=== PATIENT | female | born 1985 ===

== ENCOUNTER 2017-04-19 20:22 | Emergency (ER) | payer BC, MEDICAID ==
[2017-04-19 20:40] VITALS: BP 122/78
[2017-04-19] MEDS ORDERED: Sodium Chloride 0.9% 10 ML Syringe FLUSH PRN (21:32)
[2017-04-19] MEDS ORDERED: Sodium Chloride 0.9% 1,000 ML IV ONE (21:32)
[2017-04-19] MEDS ORDERED: Ketorolac 30 MG/ML SDV IVPUSH ONE (21:32)
[2017-04-19] MEDS ORDERED: Ondansetron 4 MG/2 ML SDV IVPUSH ONE (21:32)
[2017-04-20] MEDS ORDERED: Levofloxacin/Dextrose 5%-Water 750 MG in Premix Bag 1 BAG IV ONE (00:02)
[2017-04-20] MEDS ORDERED: Levofloxacin 250 MG Tab PO ONE (00:03)
--- NOTE | 2017-04-20 00:14 | EDM.PDOC ---
ED HPI GENERAL MEDICAL PROBLEM - General Chief Complaint: Abdominal Pain Stated Complaint: ABDOMINAL AND BACK PAIN Time Seen by Provider: 04/19/17 21:20 Source of Information: Reports: Patient History Limitations: Reports: No Limitations - History of Present Illness INITIAL COMMENTS - FREE TEXT/NARRATIVE: 32-year-old female presents for evaluation and treatment of bilateral flank and back pain. Reports that the symptoms started at least 2 weeks ago. States that she was seen by her primary care provider. She had labs and an abdominal done. She was treated for constipation. She states she's been using enemas and mag citrate but her symptoms have persisted. She reports she's had some fevers, nausea and a decreased appetite. Reports that the pain is located in the suprapubic area and radiates into the bilateral flanks and bilateral mid back. No vomiting. No dysuria but states she does feel increased pain at the end of her urinary stream. Also reports follow urine odor and increased urination. Reports her fevers have been 100 to 101 at home. Patient is currently on pain medications and incident pain contract for chronic pelvic and spine pain. She does see a provider at [facility] and is supposed to have surgery for her ongoing chronic pelvic and spinal pain. Abdominal Pain Score (Numeric/FACES): 6 - Related Data Allergies Allergy/AdvReac Type Severity Reaction Status Date / Time Penicillins Allergy Cannot Verified 04/19/17 20:40 Remember aspirin AdvReac Stomach Verified 04/19/17 20:40 Upset azithromycin [From Zithromax] AdvReac Hallucinati Verified 04/19/17 20:40 ons nerve medication Allergy Other Uncoded 04/19/17 20:40 steroids Allergy Other Uncoded 04/19/17 20:40 Home Meds: Home Meds Diazepam [Valium] 5 mg PO TID PRN #10 tablet 12/26/15 [Rx] Omeprazole 40 mg PO DAILY 12/26/15 [History] Nortriptyline 50 mg PO PCDINNER 05/16/16 [History] acetaZOLAMIDE [Diamox] 500 mg PO BID 05/16/16 [History] Morphine Sulfate/Naltrexone [Embeda ER 30-1.2 mg Capsule] 1 cap PO BID 04/19/17 [History] Nabumetone 500 mg PO BID 04/19/17 [History] oxyCODONE HCl [Oxycodone HCl] 20 mg PO BID 04/19/17 [History] Levofloxacin [Levaquin] 750 mg PO DAILY #6 tablet 04/20/17 [Rx] Past Medical History HEENT History: Reports: Impaired Vision Gastrointestinal History: Reports: Chronic Constipation Genitourinary History: Reports: None 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: Musculoskeletal History: Reports: Arthritis Other Musculoskeletal History: Bursitis to left shoulder Neurological History: Reports: Other (See Below) Other Neuro History: Psuedo tumors - cerebral Endocrine/Metabolic History: Reports: Other (See Below) Other Endocrine/Metabolic History: Thyroid nodules - Past Surgical History Female Surgical History: Reports: D&C, Tubal Ligation Neurological Surgical History: Reports: None Musculoskeletal Surgical History: Reports: Shoulder Surgery Social & Family History - Family History Family Medical History: Noncontributory - Tobacco Use Smoking Status *Q: Current Every Day Smoker Years of Tobacco use: 10 Packs/Tins Daily: 0.3 Used Tobacco, but Quit: No - Alcohol Use Days Per Week of Alcohol Use: 0 - Recreational Drug Use Recreational Drug Use: No ED ROS GENERAL - Review of Systems Review Of Systems: See Below Constitutional: Reports: Fever, Decreased Appetite Respiratory: Denies: Cough GI/Abdominal: Reports: Abdominal Pain (suprapubic ), Nausea. Denies: Diarrhea, Vomiting : Reports: Flank Pain (bilateral). Denies: Dysuria Musculoskeletal: Reports: Back Pain (bilateral mid to lower back) ED EXAM, RENAL/ - Physical Exam Exam: See Below Exam Limited By: No Limitations General Appearance: Alert, WD/WN, No Apparent Distress Eye Exam: Bilateral Eye: Normal Inspection Ears: Normal External Exam Nose: Normal Inspection Throat/Mouth: Normal Inspection, Normal Lips, Normal Voice, No Airway Compromise Neck: Normal Inspection Respiratory/Chest: No Respiratory Distress, Lungs Clear, Normal Breath Sounds Cardiovascular: Normal Peripheral Pulses, Regular Rate, Rhythm, No Murmur GI/Abdominal: Normal Bowel Sounds, Soft, Tender (reports suprapubic tenderness) Back Exam: Normal Inspection, CVA Tenderness (L), Paraspinal Tenderness Neurological: Alert, Oriented, Normal Cognition Psychiatric: Normal Affect, Normal Mood Skin Exam: Warm, Dry, Normal Color Course - Vital Signs Last Recorded V/S: Last Vital Signs Temp 37.2 C 04/19/17 20:34 Pulse 131 H 04/19/17 20:34 Resp 16 04/19/17 20:34 BP 122/78 04/19/17 20:34 Pulse Ox 100 04/19/17 20:34 - Orders/Labs/Meds Orders: Active Orders 24 hr Category Date Time Status Peripheral IV Care [RC] . DIRECTED Care 04/19/17 21:32 Active Abdomen Pelvis wo Cont [CT] Stat Exams 04/19/17 23:23 Taken Peripheral IV Insertion Adult [OM.PC] Routine Oth 04/19/17 21:32 Ordered Labs: Laboratory Tests 04/19/17 04/19/17 04/19/17 Range/Units 21:05 21:40 21:40 WBC 7.83 (3.98-10.04) K/mm3 RBC 4.04 (3.98-5.22) M/mm3 Hgb 11.9 (11.2-15.7) gm/L Hct 35.1 (34.1-44.9) % MCV 86.9 (79.4-94.8) fl MCH 29.5 (25.6-32.2) pg MCHC 33.9 (32.2-35.5) g/dl RDW Std Deviation 41.2 (36.4-46.3) fL Plt Count 187 (182-369) K/mm3 MPV 11.2 (9.4-12.3) fl Neutrophils % (Manual) 69 H (40-60) % Band Neutrophils % 0 (0-10) % Lymphocytes % (Manual) 19 L (20-40) % Atypical Lymphs % 1 % Monocytes % (Manual) 9 (2-10) % Eosinophils % (Manual) 1 (0.7-5.8) % Basophils % (Manual) 1 (0.1-1.2) Platelet Estimate Adequate Plt Morphology Comment Normal Poikilocytosis 1+ slight Anisocytosis 1+ slight Microcytosis 1+ slight Macrocytosis 1+ slight Ovalocytes 1+ slight RBC Morph Comment Abnormal Sodium 137 (136-145) mEq/L Potassium 3.3 L (3.5-5.1) mEq/L Chloride 104 (98-107) mEq/L Carbon Dioxide 18 L (21-32) mEq/L Anion Gap 18.3 H (5-15) BUN 9 (7-18) mg/dL Creatinine 1.0 (0.55-1.02) mg/dL Est Cr Clr Drug Dosing 78.54 mL/min Estimated GFR (MDRD) > 60 (>60) mL/min BUN/Creatinine Ratio 9.0 L (14-18) Glucose 112 H (74-106) mg/dL Calcium 8.2 L (8.5-10.1) mg/dL Total Bilirubin 0.3 (0.2-1.0) mg/dL AST 12 L (15-37) U/L ALT 16 (14-59) U/L Alkaline Phosphatase 114 (46-116) U/L C-Reactive Protein 10.2 H* (<1.0) mg/dL Total Protein 7.6 (6.4-8.2) g/dl Albumin 3.3 L (3.4-5.0) g/dl Globulin 4.3 gm/dL Albumin/Globulin Ratio 0.8 L (1-2) Urine Color Yellow (Yellow) Urine Appearance Slt cloudy H (Clear) Urine pH 7.5 (5.0-8.0) Ur Specific [place] 1.020 (1.005-1.030) Urine Protein 1+ H (Negative) Urine Glucose (UA) Negative (Negative) Urine Ketones Negative (Negative) Urine Occult Blood Negative (Negative) Urine Nitrite Negative (Negative) Urine Bilirubin Negative (Negative) Urine Urobilinogen 2.0 H (0.2-1.0) Ur Leukocyte Esterase 2+ H (Negative) Urine RBC 0-5 (0-5) /hpf Urine WBC 50-75 H (0-5) /hpf Ur Epithelial Cells 0-5 (0-5) /hpf Urine Bacteria Occasional (FEW) /hpf Urine Mucus Not seen (FEW) /hpf Meds: Medications Discontinued Medications Generic Name Dose Route Start Last Admin Trade Name Freq PRN Reason Stop Dose Admin Sodium Chloride 1,000 mls @ 999 mls/hr 04/19/17 21:32 04/19/17 21:46 Normal Saline IV 04/19/17 22:32 999 mls/hr ONETIME ONE Administration Levofloxacin/Dextrose 750 mg/ 150 mls @ 100 mls/hr 04/20/17 00:02 Premix IV 04/20/17 01:31 ONETIME ONE Ketorolac Tromethamine 30 mg 04/19/17 21:32 04/19/17 21:44 Toradol IVPUSH 04/19/17 21:33 30 mg ONETIME ONE Administration Levofloxacin 750 mg 04/20/17 00:03 04/20/17 00:07 Levaquin PO 04/20/17 00:04 750 mg ONETIME ONE Administration Ondansetron HCl 4 mg 04/19/17 21:32 04/19/17 21:44 Zofran IVPUSH 04/19/17 21:33 4 mg ONETIME ONE Administration Sodium Chloride 10 ml 04/19/17 21:32 04/19/17 21:44 Saline Flush FLUSH 10 ml ASDIRECTED PRN Administration Keep Vein Open - Radiology Interpretation Free Text/Narrative:: CT of the abdomen and pelvis without contrast impression per vrad: mild splenomegaly. Left sided perinephric inflammation notes without evidence for stones or hydronephrosis. These findings may represent pyelonephritis. Please correlate with urinalysis. Nonspecific retroperitoneal lymphadenopathy. - Re-Assessments/Exams Free Text/Narrative Re-Assessment/Exam: 04/19/17 23:13 I reviewed the labs with the patient. Given her positive urinalysis and positive UA on the along with her current symptoms; she clinically has a pyelonephritis. I informed her that she needs antibiotics. Her urine has been sent for culture. Patient is adamant that she has kidney stones. She would like us to obtain a CT to evaluate this. Will obtain CT of the abdomen and pelvis. 04/20/17 00:[address] results with the patient. No stones. Stranding on the left kidney consistent with pyelonephritis. She does have mild splenomegaly and nonspecific retroperitoneal lymphadenopathy. This is likely from infection. I will have a follow-up with her primary care provider for recheck of her symptoms next week. Discharge instructions as documented. Departure - Departure Time of Disposition: 00:11 Disposition: Home, Self-Care 01 Condition: Fair Clinical Impression: Pyelonephritis - Discharge Information Prescriptions: Levofloxacin [Levaquin] 750 mg PO DAILY #6 tablet Instructions: Pyelonephritis, Adult Referrals: Marge Penn DENTAL HYGIENIST MOBILE COORDINATOR [Primary Care Provider] - Forms: ED Department Discharge Additional Instructions: Continue with your current pain medications. He may take [id number] Tylenol as needed for fever and additional pain relief. Follow up with Libby carolina next week for recheck of your symptoms. Major drinking plenty of fluids. Levaquin 1 tab daily for the next 6 days. First dose given in the ED. Stereo prescription on [id number] of the abdomen and pelvis impression per radiology: mild spenlomegaly. Left sided perinephric inflammation without evidence of stones or hydronephrosis. These findings may represent pyelonephritis. Nonspecific retroperitoneal lyphadenopathy. Please return to the ER if her symptoms change or worsen. - My Orders Last 24 Hours: My Active Orders 04/19/17 21:32 Peripheral IV Care [RC] . DIRECTED Peripheral IV Insertion Adult [OM.PC] Routine 04/19/17 23:23 Abdomen Pelvis wo Cont [CT] Stat - Assessment/Plan Last 24 Hours: My Active Orders 04/19/17 21:32 Peripheral IV Care [RC] . DIRECTED Peripheral IV Insertion Adult [OM.PC] Routine 04/19/17 23:23 Abdomen Pelvis wo Cont [CT] Stat
--- NOTE | 2017-04-20 12:55 | CT ---
CT abdomen and pelvis Technique: Multiple axial sections were obtained from above the dome of the diaphragm inferiorly through the pubic symphysis. Intravenous and oral contrast not utilized. Study has been performed as a ureteral stone protocol. Findings: Kidneys show no abnormal calcifications. No ureteral dilatation or ureteral stone is seen. No bladder calculi are identified. There is inflammatory change seen around the left kidney. Visualized lung bases are clear. Noncontrast appearance of the liver appears within normal limits. Spleen is slightly prominent in size at 13 cm. Adrenal glands show no nodule. Pancreas shows no discrete abnormality. Gallbladder contains no calcified gallstones. Aorta shows no aneurysmal dilatation. No mesenteric abnormalities are seen. No pelvic mass or adenopathy is seen. Minimally prominent lymph nodes are seen within the retroperitoneum. No free fluid is seen. Bone window settings appear within normal limits for the patient's age. Impression: 1. Inflammatory change around the left kidney. No ureteral calculi are seen. Inflammatory change could represent change from recent passage of a ureteral stone as well as pyelonephritis. 2. Spleen is mildly enlarged. Minimally prominent retroperitoneal lymph nodes are seen. Both these findings are nonspecific. 3. No additional abnormality identified on noncontrast CT study of the abdomen and pelvis. Diagnostic code #3 Agree with preliminary report issued by [employer] ([employer] preliminary report dictated on 04/20/17, 12:52 AM Central Time) [facility]
== END 2017-04-20 00:23 | disposition home or self-care (01) ==
LOC: JD.ED 20:22
DX: N12 Tubulo-interstitial nephritis, not specified as acute or chronic (principal); F17.210 Nicotine dependence, cigarettes, uncomplicated; Z79.2 Long term (current) use of antibiotics; Z79.899 Other long term (current) drug therapy; Z88.0 Allergy status to penicillin; Z88.1 Allergy status to other antibiotic agents; Z88.6 Allergy status to analgesic agent; Z88.8 Allergy status to other drugs, medicaments and biological substances
CPT/HCPCS: 36415; 74176; 80053; 81001; 85025; 86140; 96361; 96374; 96375; 99284; A9270; J1885; J2405; J7040; J7050

== ENCOUNTER 2017-11-15 22:16 | Emergency (ER) | payer MEDICAID ==
[2017-11-15 22:36] VITALS: BP 118/80
[2017-11-15] MEDS ORDERED: Sodium Chloride 0.9% 10 ML Syringe FLUSH PRN (23:01)
[2017-11-16] MEDS ORDERED: Metoclopramide 10 MG/2 ML SDV IVPUSH ONE (00:26)
[2017-11-16] MEDS ORDERED: Morphine 10 MG/ML Syringe IVPUSH ONE (00:27)
[2017-11-16] MEDS ORDERED: Morphine 4 MG/ML Syringe IVPUSH ONE (00:45)
[2017-11-16] MEDS ORDERED: Sodium Chloride 0.9% 1,000 ML IV ONE (01:47)
[2017-11-16] MEDS ORDERED: Potassium Chloride 20 MEQ Tab.ER PO ONE (01:48)
[2017-11-16] MEDS ORDERED: Acetaminophen 325 MG Tab PO ONE (03:21)
--- NOTE | 2017-11-16 03:51 | EDM.PDOC ---
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, NSAIDS Bilateral Incisional Pain Score (Numeric/FACES): 9 - Related Data Allergies Allergy/AdvReac Type Severity Reaction Status Date / Time aspirin AdvReac Stomach Verified 11/15/17 22:37 Upset azithromycin [From Zithromax] AdvReac Hallucinati Verified 11/15/17 22:37 ons Home Meds: Home Meds Omeprazole 40 mg PO ACBREAKFAST 12/26/15 [History] Nortriptyline 50 mg PO PCDINNER 05/16/16 [History] acetaZOLAMIDE [Diamox] 500 mg PO BID 05/16/16 [History] Morphine Sulfate/Naltrexone [Embeda ER 30-1.2 mg Capsule] 1 cap PO BID 04/19/17 [History] oxyCODONE HCl [Oxycodone HCl] 20 mg PO Q3HR 04/19/17 [History] Celecoxib [CeleBREX] 200 mg PO BID 11/16/17 [History] Diazepam [Valium] 2 mg PO BID PRN 11/16/17 [History] Polyethylene Glycol 3350 [MiraLAX] 1 packet PO DAILY 11/16/17 [History] Sennosides/Docusate Sodium [Senna-Docusate Sodium Tablet] 1 each PO BID [History] Past Medical History HEENT History: Reports: Impaired Vision Gastrointestinal History: Reports: Chronic Constipation Genitourinary History: Reports: 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: Musculoskeletal History: Reports: Arthritis Other Musculoskeletal History: Bursitis to left shoulder Neurological History: Reports: Other (See Below) Other Neuro History: Psuedo tumors - cerebral Endocrine/Metabolic History: Reports: Other (See Below) Other Endocrine/Metabolic History: Thyroid nodules - Infectious Disease History Infectious Disease History: Reports: Chicken Pox - Past Surgical History HEENT Surgical History: Reports: Oral Surgery Female Surgical History: Reports: D&C, Tubal Ligation Neurological Surgical History: Reports: None Musculoskeletal Surgical History: Reports: Shoulder Surgery, Other (See Below) Other Musculoskeletal Surgeries/Procedures:: SI fusion/pelvic Social & Family History - Family History Family Medical History: Noncontributory - Tobacco Use Smoking Status *Q: Former Smoker Used Tobacco, but Quit: Yes Month/Year Tobacco Last Used: 11/15 - Caffeine Use Caffeine Use: Reports: Coffee, Tea - Recreational Drug Use Recreational Drug Use: No Course - Vital Signs Last Recorded V/S: Last Vital Signs Temp 100.2 F 11/16/17 03:28 Pulse 124 H 11/15/17 22:30 Resp 18 11/15/17 22:30 BP 118/80 11/15/17 22:30 Pulse Ox 99 11/15/17 22:30 - Orders/Labs/Meds Orders: Active Orders 24 hr Category Date Time Status Chest 2V [CR] Stat Exams 11/15/17 23:41 Taken CULTURE BLOOD [BC] Stat Lab 11/15/17 23:15 Received CULTURE BLOOD [BC] Stat Lab 11/15/17 23:45 Received CULTURE URINE [RM] Stat Lab 11/16/17 00:11 Ordered UA W/MICROSCOPIC [URIN] Stat Lab 11/16/17 00:10 Ordered Sodium Chloride 0.9% [Saline Flush] Med 11/15/17 23:01 Active 10 ml FLUSH ASDIRECTED PRN Blood Culture x2 Reflex Set [OM.PC] Stat Oth 11/15/17 23:00 Ordered Saline Lock Insert [OM.PC] Stat Oth 11/15/17 23:01 Ordered Medication Orders Sodium Chloride (Saline Flush) 10 ml FLUSH ASDIRECTED PRN PRN Reason: Keep Vein Open Last Admin: 11/16/17 00:10 Dose: 10 ml Labs: Laboratory Tests 11/15/17 11/15/17 11/15/17 Range/Units 23:15 23:15 23:15 WBC 7.29 (3.98-10.04) K/mm3 RBC 2.92 L (3.98-5.22) M/mm3 Hgb 8.6 L (11.2-15.7) gm/L Hct 26.3 L (34.1-44.9) % MCV 90.1 (79.4-94.8) fl MCH 29.5 (25.6-32.2) pg MCHC 32.7 (32.2-35.5) g/dl RDW Std Deviation 43.1 (36.4-46.3) fL Plt Count 176 L (182-369) K/mm3 MPV 11.2 (9.4-12.3) fl Neut % (Auto) 70.8 (34.0-71.1) % Lymph % (Auto) 14.4 L (19.3-51.7) % [place] % (Auto) 12.8 H (4.7-12.5) % Eos % (Auto) 1.0 (0.7-5.8) Baso % (Auto) 0.3 (0.1-1.2) % Neut # (Auto) 5.17 (1.56-6.13) K/mm3 Lymph # (Auto) 1.05 L (1.18-3.74) K/mm3 [place] # (Auto) 0.93 H (0.24-0.36) K/mm3 Eos # (Auto) 0.07 (0.04-0.36) K/mm3 Baso # (Auto) 0.02 (0.01-0.08) K/mm3 Sodium 133 L (136-145) mEq/L Potassium 3.2 L (3.5-5.1) mEq/L Chloride 101 (98-107) mEq/L Carbon Dioxide 17 L (21-32) mEq/L Anion Gap 18.2 H (5-15) BUN 9 (7-18) mg/dL Creatinine 0.8 (0.55-1.02) mg/dL Est Cr Clr Drug Dosing 98.18 mL/min Estimated GFR (MDRD) > 60 (>60) mL/min BUN/Creatinine Ratio 11.3 L (14-18) Glucose 128 H (74-106) mg/dL Lactic Acid 0.6 (0.4-2.0) mmol/L Calcium 7.9 L (8.5-10.1) mg/dL Total Bilirubin 0.6 (0.2-1.0) mg/dL AST 24 (15-37) U/L ALT 20 (14-59) U/L Alkaline Phosphatase 117 H (46-116) U/L Total Protein 6.6 (6.4-8.2) g/dl Albumin 2.6 L (3.4-5.0) g/dl Globulin 4.0 gm/dL Albumin/Globulin Ratio 0.7 L (1-2) Urine Color (Yellow) Urine Appearance (Clear) Urine pH (5.0-8.0) Ur Specific [place] (1.005-1.030) Urine Protein (Negative) Urine Glucose (UA) (Negative) Urine Ketones (Negative) Urine Occult Blood (Negative) Urine Nitrite (Negative) Urine Bilirubin (Negative) Urine Urobilinogen (0.2-1.0) Ur Leukocyte Esterase (Negative) Urine RBC (0-5) /hpf Urine WBC (0-5) /hpf Ur Epithelial Cells (0-5) /hpf Urine Bacteria (FEW) /hpf Urine Mucus (FEW) /hpf 11/16/17 Range/Units 00:10 WBC (3.98-10.04) K/mm3 RBC (3.98-5.22) M/mm3 Hgb (11.2-15.7) gm/L Hct (34.1-44.9) % MCV (79.4-94.8) fl MCH (25.6-32.2) pg MCHC (32.2-35.5) g/dl RDW Std Deviation (36.4-46.3) fL Plt Count (182-369) K/mm3 MPV (9.4-12.3) fl Neut % (Auto) (34.0-71.1) % Lymph % (Auto) (19.3-51.7) % [place] % (Auto) (4.7-12.5) % Eos % (Auto) (0.7-5.8) Baso % (Auto) (0.1-1.2) % Neut # (Auto) (1.56-6.13) K/mm3 Lymph # (Auto) (1.18-3.74) K/mm3 [place] # (Auto) (0.24-0.36) K/mm3 Eos # (Auto) (0.04-0.36) K/mm3 Baso # (Auto) (0.01-0.08) K/mm3 Sodium (136-145) mEq/L Potassium (3.5-5.1) mEq/L Chloride (98-107) mEq/L Carbon Dioxide (21-32) mEq/L Anion Gap (5-15) BUN (7-18) mg/dL Creatinine (0.55-1.02) mg/dL Est Cr Clr Drug Dosing mL/min Estimated GFR (MDRD) (>60) mL/min BUN/Creatinine Ratio (14-18) Glucose (74-106) mg/dL Lactic Acid (0.4-2.0) mmol/L Calcium (8.5-10.1) mg/dL Total Bilirubin (0.2-1.0) mg/dL AST (15-37) U/L ALT (14-59) U/L Alkaline Phosphatase (46-116) U/L Total Protein (6.4-8.2) g/dl Albumin (3.4-5.0) g/dl Globulin gm/dL Albumin/Globulin Ratio (1-2) Urine Color Yellow (Yellow) Urine Appearance Clear (Clear) Urine pH 7.0 (5.0-8.0) Ur Specific [place] 1.015 (1.005-1.030) Urine Protein Negative (Negative) Urine Glucose (UA) Negative (Negative) Urine Ketones Negative (Negative) Urine Occult Blood Negative (Negative) Urine Nitrite Negative (Negative) Urine Bilirubin Negative (Negative) Urine Urobilinogen 1.0 (0.2-1.0) Ur Leukocyte Esterase Negative (Negative) Urine RBC 0-5 (0-5) /hpf Urine WBC 0-5 (0-5) /hpf Ur Epithelial Cells 0-5 (0-5) /hpf Urine Bacteria Not seen (FEW) /hpf Urine Mucus Not seen (FEW) /hpf Meds: Medications Generic Name Dose Route Start Last Admin Trade Name Ronak PRN Reason Stop Dose Admin Sodium Chloride 10 ml 11/15/17 23:01 11/16/17 00:10 Saline Flush FLUSH 10 ml ASDIRECTED PRN Administration Keep Vein Open Discontinued Medications Generic Name Dose Route Start Last Admin Trade Name Ronak PRN Reason Stop Dose Admin Acetaminophen 975 mg 11/16/17 03:21 11/16/17 03:28 Tylenol PO 11/16/17 03:22 975 mg NOW ONE Administration Sodium Chloride 1,000 mls @ 1,000 mls/hr 11/16/17 01:47 11/16/17 02:06 Normal Saline IV 11/16/17 02:46 1,000 mls/hr ONETIME ONE Administration Metoclopramide HCl 5 mg 11/16/17 00:26 11/16/17 00:51 Reglan IVPUSH 11/16/17 00:27 5 mg ONETIME ONE Administration Morphine Sulfate 4 mg 11/16/17 00:27 11/16/17 00:49 Morphine IVPUSH 11/16/17 00:28 Not Given ONETIME ONE Morphine Sulfate 4 mg 11/16/17 00:45 11/16/17 00:53 Morphine IVPUSH 11/16/17 00:46 4 mg ONETIME ONE Administration Potassium Chloride 40 meq 11/16/17 01:48 11/16/17 02:06 Klor-Con M20 PO 11/16/17 01:49 40 meq ONETIME ONE Administration Departure - Departure Time of Disposition: 03:43 Disposition: Home, Self-Care 01 Preliminary Cause of *Q: Cardiac Arrest Condition: Good Clinical Impression: Temperature elevated, Postoperative pain, Thrombocytopenia Anemia Qualifiers: Anemia type: unspecified type Qualified Code(s): D64.9 - Anemia, unspecified - Discharge Information *PRESCRIPTION DRUG MONITORING PROGRAM REVIEWED*: Not Applicable *COPY OF PRESCRIPTION DRUG MONITORING REPORT IN PATIENT SHERI: Not Applicable Instructions: Anemia, Fever, Adult, [id number] Referrals: Marge Penn COMPUTER TECHNICAL SUPPORT SPECIALIST [Primary Care Provider] - 2 Days Additional Instructions: Please call your male clinic doctor, Dr. hooper office or service and schedule a follow-up appointment. Rest, and elevate your extremities as tolerated and per instructed on your discharge papers. Follow daily dietary advice as discussed. Increase your potassium by a green leafy vegetables citrus items and increase your hemoglobin by a increasing iron intake over the counter iron tablets, green leafy vegetables vegetables, steak, liver. You need to have a follow-up appointment within the next few days. Return to the ER for any increased pain fever or any significant changes. - My Orders Last 24 Hours: My Active Orders 11/15/17 23:00 Blood Culture x2 Reflex Set [OM.PC] Stat 11/15/17 23:01 Sodium Chloride 0.9% [Saline Flush] 10 ml FLUSH ASDIRECTED PRN Saline Lock Insert [OM.PC] Stat 11/15/17 23:15 CULTURE BLOOD [BC] Stat 11/15/17 23:41 Chest 2V [CR] Stat 11/15/17 23:45 CULTURE BLOOD [BC] Stat 11/16/17 00:10 UA W/MICROSCOPIC [URIN] Stat 11/16/17 00:11 CULTURE URINE [RM] Stat - Assessment/Plan Last 24 Hours: My Active Orders 11/15/17 23:00 Blood Culture x2 Reflex Set [OM.PC] Stat 11/15/17 23:01 Sodium Chloride 0.9% [Saline Flush] 10 ml FLUSH ASDIRECTED PRN Saline Lock Insert [OM.PC] Stat 11/15/17 23:15 CULTURE BLOOD [BC] Stat 11/15/17 23:41 Chest 2V [CR] Stat 11/15/17 23:45 CULTURE BLOOD [BC] Stat 11/16/17 00:10 UA W/MICROSCOPIC [URIN] Stat 11/16/17 00:11 CULTURE URINE [RM] Stat
--- NOTE | 2017-11-16 06:59 | CR ---
Chest: Two views of the chest were obtained. Comparison: No prior chest x-ray. Heart size and mediastinum are normal. Lungs are clear with no acute parenchymal change. Old healed left mid to lower rib fractures are noted. Impression: 1. Incidental findings. Nothing acute is seen on two-view chest x-ray. Diagnostic code #2
== END 2017-11-16 04:00 | disposition home or self-care (01) ==
LOC: JD.ED 22:16
DX: G89.18 Other acute postprocedural pain (principal); D64.9 Anemia, unspecified; R50.9 Fever, unspecified; D69.6 Thrombocytopenia, unspecified; Z88.8 Allergy status to other drugs, medicaments and biological substances; Z88.1 Allergy status to other antibiotic agents; Z79.899 Other long term (current) drug therapy; Z87.891 Personal history of nicotine dependence
CPT/HCPCS: 36415; 71046; 80053; 81001; 83605; 85025; 87040; 87086; 96361; 96374; 96375; 99284; A9270; J2270; J2765; J7040; J7050

== ENCOUNTER 2022-03-14 11:10 | Emergency (ER) | payer OTHER, MEDICARE, MEDICAID ==
[2022-03-14 12:55] VITALS: BP 107/90; PULSE 102
[2022-03-14] MEDS ORDERED: Sodium Chloride 0.9% 10 ML Syringe FLUSH PRN ×2 (13:33→13:43)
[2022-03-14] MEDS ORDERED: Ondansetron 4 MG/2 ML SDV IVPUSH ONE (13:37)
[2022-03-14] MEDS ORDERED: HYDROmorphone 0.5 MG/0.5 ML Syringe IVPUSH ONE (13:37)
[2022-03-14] MEDS ORDERED: Sodium Chloride 0.9% 1,000 ML IV STA (13:37)
[2022-03-14] MEDS ORDERED: Iopamidol 612 MG/ML 100 ML Bottle IVPUSH ONE (13:43)
[2022-03-14 14:23] LABS: ESTIMATED GFR 84 mL/min (>60)
== END 2022-03-14 15:08 | disposition home or self-care (01) ==
LOC: JD.ED 11:10
DX: R10.32 Left lower quadrant pain (principal); R10.12 Left upper quadrant pain; M19.90 Unspecified osteoarthritis, unspecified site; Z88.8 Allergy status to other drugs, medicaments and biological substances; Z88.1 Allergy status to other antibiotic agents; Z79.899 Other long term (current) drug therapy
CPT/HCPCS: 36415; 74177; 80053; 81001; 84703; 85025; 86140; 96361; 96374; 96375; 99284; J1170; J2405; J3490; J7030; Q9967